=== PATIENT | female | born 1980 | race Caucasian/White ===

== ENCOUNTER → 2024-01-27 10:34 | Outpatient (REF) | payer OTHER, SELFPAY | LOC: HWWDC 10:34 | PROVIDERS: ATTENDING PHYSICIAN Nurse Practitioner Obstetrics & Gynecology; FAMILY PHYSICIAN Physician Assistant Medical | DX: Z12.31 Encounter for screening mammogram for malignant neoplasm of breast (principal) | CPT/HCPCS: 77063; 77067 ==

== ENCOUNTER 2024-12-31 06:15 | Day surgery (SDC) | payer OTHER, SELFPAY | END 2024-12-31 09:16 | disposition home or self-care (01) | LOC: GI 06:15 | PROVIDERS: ATTENDING PHYSICIAN Internal Medicine | DX: Z12.11 Encounter for screening for malignant neoplasm of colon (principal); D12.4 Benign neoplasm of descending colon; K62.89 Other specified diseases of anus and rectum; K63.89 Other specified diseases of intestine | CPT/HCPCS: 45385; 45380; 88305 ==

== ENCOUNTER → 2025-02-21 09:01 | Outpatient (REF) | payer OTHER, SELFPAY | LOC: HWWDC 09:01 | PROVIDERS: ATTENDING PHYSICIAN Nurse Practitioner Obstetrics & Gynecology; FAMILY PHYSICIAN Family Medicine | DX: Z12.31 Encounter for screening mammogram for malignant neoplasm of breast (principal) | CPT/HCPCS: 77063; 77067 ==